=== PATIENT | female | born 1940 | race Caucasian/White ===

== ENCOUNTER 2020-08-07 21:05 | Inpatient (IN) ==
[2020-08-07] MEDS ORDERED: 0.9 % Sodium Chloride 500 ML IVC ONE (22:07)
[2020-08-07 22:53] LABS: Basophils % 0.3 %; Eosinophils % 0.1 %; Hematocrit 39.3 % (35.3-44.9); Hemoglobin 12.9 g/dL (11.5-15.4); Immature Granulocytes % 1.6 % (0-4); Lymphocytes # 1.1 K/mcL (0.6-4.6); Lymphocytes % 7.9 %; Mean Corpuscular HGB Conc 32.8 g/dL (31.6-35.5); Mean Corpuscular Hemoglobin 29.8 pg (28.0-33.3); Mean Corpuscular Volume 90.8 fL (83.0-100.0); Mean Platelet Volume 10.3 fL (9.4-12.4); Monocytes # 1.1 K/mcL (0.0-1.3); Monocytes % 8.1 %; Neutrophils # 11.6 K/mcL (1.6-8.9); Platelet Count 177 K/mcL (140-400); Red Blood Count 4.33 M/mcL (3.82-4.97); Red Cell Distribution Width 13.4 % (11.5-14.5); White Blood Count 14.1 K/mcL (4.3-11.1)
[2020-08-07 23:36] LABS: Alanine Aminotransferase 22 Units/L (7-52); Albumin/Globulin Ratio 1.3 (1.1-2.2); Alkaline Phosphatase 52 Units/L (34-104); Aspartate Amino Transferase 17 Units/L (13-39); BUN/Creatinine Ratio 27 (6-26); Bilirubin,Total 0.5 mg/dL (0.3-1.0); Blood Urea Nitrogen 39 mg/dL (8-23); Calcium 8.5 mg/dL (8.6-10.3); Carbon Dioxide 24 mEq/L (23-29); Chloride 98 mEq/L (98-107); Globulin 2.4 g/dL (2.4-3.5); Glucose 96 mg/dL (70-105); Osmolality,Calculated 279 (280-300); Potassium 4.2 mEq/L (3.5-5.1); Sodium 130 mEq/L (136-145); Total Protein 5.4 g/dL (6.4-8.9); Troponin I < 0.03 ng/mL (< 0.04); eGFR For African Americans 43 (> 60); eGFR For Non-African Americans 36 (> 60)
[2020-08-08] MEDS ORDERED: Azithromycin 500 MG in D5% in Water 250 ML IVPB ONE (00:04)
[2020-08-08] MEDS ORDERED: cefTRIAXone 1,000 MG in 0.9 % Sodium Chloride Mini Bag 100 ML IVPB ONE (00:04)
[2020-08-08] MEDS ORDERED: 0.9 % Sodium Chloride 500 ML IVC ONE ×2 (00:05→06:07)
[2020-08-08] MEDS ORDERED: Dexamethasone 4 MG/ML VIAL IVP ONE (00:05)
[2020-08-08] MEDS ORDERED: 0.9 % Sodium Chloride 1,000 ML IVC ONE (01:01)
[2020-08-08] MEDS ORDERED: Ondansetron 4 MG/2 ML VIAL IVP PRN (01:32)
[2020-08-08] MEDS ORDERED: Naloxone 0.4 MG/ML INJ IVP PRN (01:32)
[2020-08-08] MEDS ORDERED: Ringers Solution, Lactated 1,000 ML IVC SCH (03:45)
[2020-08-08 05:08] LABS: INR 1.2; Prothrombin Time 13.5 Seconds (9.4-12.1)
[2020-08-08 05:11] LABS: Activated Partial Thrombo Time 23.6 Seconds (26.0-36.0)
[2020-08-08] MEDS: Acetaminophen 325 MG TABLET PO PRN (05:18)
[2020-08-08 05:32] LABS: Magnesium 1.4 mg/dL (1.6-2.6); Phosphorous 2.1 mg/dL (2.7-4.5)
[2020-08-08 05:53] LABS: Hematocrit 36.7 % (35.3-44.9); Hemoglobin 11.8 g/dL (11.5-15.4); Mean Corpuscular HGB Conc 32.2 g/dL (31.6-35.5); Mean Corpuscular Hemoglobin 29.9 pg (28.0-33.3); Mean Corpuscular Volume 93.1 fL (83.0-100.0); Mean Platelet Volume 10.6 fL (9.4-12.4); Platelet Count 164 K/mcL (140-400); Red Blood Count 3.94 M/mcL (3.82-4.97); Red Cell Distribution Width 13.6 % (11.5-14.5)
[2020-08-08] MEDS: *HR* Heparin 5,000 UNIT/ML VIAL SQ SCH ×2 (06:05→20:47)
[2020-08-08 08:02] LABS: Sodium, Urine 26.2 mEq/L
[2020-08-08 08:14] LABS: Bacteria,Urine Few per hpf (None-Few); Bilirubin,Urine Negative (Negative); Blood,Urine Negative (Negative); Clarity,Urine Clear (Clear); Color,Urine Light-Yellow (Yellow); Glucose,Urine (UA) Normal (Normal); Hyaline Casts,Urine Few per lpf (None Seen); Ketones,Urine Negative (Negative); Leukocyte Esterase,Urine Negative (Negative); Mucus,Urine Few per lpf (None-Few); Nitrite,Urine Positive (Negative); Protein,Urine Negative (Neg-Trace); RBC,Urine 0-3 per hpf (0-3); Specific Gravity,Urine 1.011 (1.010-1.025); Squamous Epithelial Cell,Urine Few per hpf (None-Few); Transitional Epi Cells,Urine Few per hpf (None-Few); Urobilinogen,Urine Normal (Normal); WBC,Urine 0-3 per hpf (0-3)
[2020-08-08] MEDS: Azithromycin 500 MG in 0.9 % Sodium Chloride 250 ML IVPB SCH (09:05)
[2020-08-08] MEDS ORDERED: Gabapentin 300 MG CAPSULE PO SCH (21:00)
[2020-08-09 03:12] LABS: Calcium 8.9 mg/dL (8.6-10.3); Magnesium 1.8 mg/dL (1.6-2.6); Potassium 3.9 mEq/L (3.5-5.1)
[2020-08-09] MEDS: Acetaminophen 325 MG TABLET PO PRN (03:21)
[2020-08-09 03:25] VITALS: BP 126/62
[2020-08-09] MEDS: Azithromycin 500 MG in 0.9 % Sodium Chloride 250 ML IVPB SCH (06:01)
[2020-08-09] MEDS: *HR* Heparin 5,000 UNIT/ML VIAL SQ SCH (06:02)
[2020-08-09] MEDS ORDERED: Aspirin 325 MG TABLET PO SCH (09:00)
[2020-08-09] MEDS ORDERED: cefTRIAXone 1,000 MG in 0.9 % Sodium Chloride Mini Bag 100 ML IVPB SCH (09:00)
[2020-08-09 18:20] LABS: VBG Ionized Calcium 1.13 mmol/L (1.15-1.35)
== END 2020-08-09 18:40 | disposition critical access hospital (66) | DRG 871 ==
LOC: CDU 21:05 → EMEROOARM 21:05 → OBSVTOIN 08-08 01:50 → CDU 08-08 02:06
PROVIDERS: ADMIT Internal Medicine; ATTEND Internal Medicine